=== PATIENT | male | born 1935 | race Caucasian/White ===

== ENCOUNTER → 2017-02-09 | Outpatient (CLI) | payer BC ==
[~2017-02-09] MED LIST: ADVIN10/60 INH; AMLO-110 PO; AMOX500C3 PO; ASPI325T45 PO; DUTA0.5C PO; FINA5TAB PO; INSUINJ SC; LISI-725 PO; MAGN400T6 PO; METF1000 PO; METO25TA56 PO; OMEP20TA PO; SILO8CAP PO; SIMV20TA5 PO
[2017-02-09 09:45] LABS: BASO % 0.2 %; BASO ABS # 0.01 K/uL (0-0.2); COMPLETE YES; EOS % 5.5 %; IG% 0.2 %; LYMPH % 31.8 %; MEAN CELL VOLUME 97.9 fL (80-100); MEAN CORPUSCULAR HEMOGLOBIN 32.9 pg (25-34); MEAN CORPUSCULAR HGB CONC 33.6 g/dl (32-36); MEAN PLATELET VOLUME 10.8 fL (7.4-10.4); MONO % 8.5 %; NEUT % 53.8 %; PLATELET COUNT 160 K/uL (130-400); RED BLOOD COUNT 4.29 M/uL (4.7-6.1); WHITE BLOOD COUNT 4.72 K/uL (4.8-10.8)
[2017-02-09 10:06] LABS: ESTIMATED AVERAGE GLUCOSE 148 mg/dl; HA1C FLAG Normal (Normal)
[2017-02-09 10:20] LABS: CHOLESTEROL/HDL RATIO 3.1; MAGNESIUM 1.9 mg/dl (1.8-2.4)
[2017-02-09 10:27] LABS: RATIO 6.3 mcg/mg (0-30.0)
== END | disposition home or self-care (01) ==
LOC: C.LAB 07:17
PROVIDERS: ATTEND Internal Medicine
DX: I25.10 Atherosclerotic heart disease of native coronary artery without angina pectoris (principal); D64.9 Anemia, unspecified; E78.00 Pure hypercholesterolemia, unspecified; E11.9 Type 2 diabetes mellitus without complications; E83.42 Hypomagnesemia

== ENCOUNTER → 2017-08-16 | Outpatient (CLI) | payer BC ==
[2017-08-16 10:12] LABS: HEMATOCRIT 42.7 % (42-52); MEAN CELL VOLUME 98.2 fL (80-100); MEAN CORPUSCULAR HEMOGLOBIN 32.4 pg (25-34); MEAN PLATELET VOLUME 10.9 fL (7.4-10.4); PLATELET COUNT 139 K/uL (130-400); RED BLOOD COUNT 4.35 M/uL (4.7-6.1); WHITE BLOOD COUNT 5.52 K/uL (4.8-10.8)
[2017-08-16 10:19] LABS: ESTIMATED AVERAGE GLUCOSE 140 mg/dl; HA1C FLAG Normal (Normal)
[2017-08-16 10:30] LABS: ALT/SGPT 37 U/L (12-78); AST/SGOT 20 U/L (15-37); BLOOD UREA NITROGEN 19 mg/dl (7-18); BUN/CREATININE RATIO 17.7 (10-20); CARBON DIOXIDE 27 mmol/L (21-32); CHLORIDE 107 mmol/L (98-107); CREATININE 1.05 mg/dl (0.60-1.40); GLUCOSE 128 mg/dl (70-99); POTASSIUM 4.5 mmol/L (3.5-5.1); SODIUM 142 mmol/L (136-145)
[2017-08-16 10:33] LABS: CHOLESTEROL 114 mg/dl (0-200); CHOLESTEROL/HDL RATIO 2.4; HDL CHOLESTEROL 47 mg/dl; LDL CHOLESTEROL CALCULATED 51 mg/dl; TRIGLYCERIDES 82 mg/dl (0-150); VERY LOW DENSITY LIPOPROT CALC 16 mg/dl
== END | disposition home or self-care (01) ==
LOC: C.LAB 08:37
PROVIDERS: ATTEND Internal Medicine Cardiovascular Disease
DX: I10 Essential (primary) hypertension (principal); E11.9 Type 2 diabetes mellitus without complications; D64.9 Anemia, unspecified; I25.10 Atherosclerotic heart disease of native coronary artery without angina pectoris

== ENCOUNTER → 2018-02-06 | Outpatient (CLI) | payer BC ==
[~2018-02-06] MED LIST changes: +ASPECOTC PO; -ASPI325T45 PO
[2018-02-06 10:55] LABS: HEMATOCRIT 41.9 % (42-52); HEMOGLOBIN 14.1 g/dL (14.0-18.0); MEAN CELL VOLUME 97.2 fL (80-100); MEAN CORPUSCULAR HEMOGLOBIN 32.7 pg (25-34); MEAN CORPUSCULAR HGB CONC 33.7 g/dl (32-36); MEAN PLATELET VOLUME 11.1 fL (7.4-10.4); PLATELET COUNT 153 K/uL (130-400); RED CELL DISTRIBUTION WIDTH CV 12.9 % (11.5-14.5); RED CELL DISTRIBUTION WIDTH SD 45.6 fL (36.4-46.3)
[2018-02-06 11:42] LABS: BLOOD UREA NITROGEN 18 mg/dl (7-18); GLUCOSE 147 mg/dl (70-99)
[2018-02-06 11:43] LABS: ALT/SGPT 37 U/L (12-78); AST/SGOT 23 U/L (15-37); CALCIUM 8.8 mg/dl (8.5-10.1); CARBON DIOXIDE 27 mmol/L (21-32); CHOLESTEROL 114 mg/dl (0-200); CREATININE 1.18 mg/dl (0.60-1.40); POTASSIUM 4.4 mmol/L (3.5-5.1); SODIUM 141 mmol/L (136-145)
[2018-02-06 11:46] LABS: LDL CHOLESTEROL CALCULATED 46 mg/dl
== END | disposition home or self-care (01) ==
LOC: C.LABBC 08:08
PROVIDERS: ATTEND Internal Medicine
DX: E78.00 Pure hypercholesterolemia, unspecified (principal); N40.1 Benign prostatic hyperplasia with lower urinary tract symptoms; I10 Essential (primary) hypertension; D64.9 Anemia, unspecified

== ENCOUNTER 2018-05-01 08:09 | Inpatient (IN) | payer BC, OTHER ==
[~2018-05-01] VITALS: Ht 172.7 cm; Wt 98.4 kg
[~2018-05-01 08:09] MED LIST changes: -AMLO-110 PO; +AMLO5TAB3 PO
[2018-05-01] MEDS ORDERED: SODIUM CHLORIDE 0.9% 1000ML 1,000 ML IV SCH (08:12)
--- NOTE | 2018-05-01 08:29 | EMERGENCY ROOM VISIT NOTE ---
History Report prepared by Braydon: Nannette Christian Under the Supervision of: Dr. John Ferguson M.D. First contact with patient: 08:20 Chief Complaint: STROKE SYMPTOMS Stated Complaint: RT ARM & LEG NOT WORKING CORRECTLY, HEAD NOT RIGHT Nursing Triage Summary: pt reports last night 2200 sx started with right arm and leg not working properly. claim professional equal and smile equal . no speech problems. right leg difficulty lift slow getting words out and finding corect words. pt reports pressure in head History of Present Illness The patient is a 83 year old male who presents to the Emergency Room with complaints of worsening right-sided weakness that began at 2200 last night, about 11 hours ago. The patient's states that they were watching television and the patient went to stand up, but was unable to put weight on his right leg. The patient states that he was also unable to move his right leg. 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 The patients also reports that his speech was normal. The patient states that he does not usually use a cane but had to use one to help him walk last night because of the weakness in his right leg. The patient denies any stomach pain, but reports a slight headache that feels like "pressure". The patient states that he had bypass 6 years ago in [place]. He also states that he follows with Dr. Vigil and that Dr. Hatch is his sr vice president. Source of History: patient, spouse/significant other Onset: 11 hours ago Position: arm (right), leg (right) Quality: pressure (headache ), other (weakness ) Timing: worsening Associated Symptoms: + headache, No abdominal pain Review of Systems See HPI for pertinent positives & negatives. A total of 10 systems reviewed and were otherwise negative. Past Medical & Surgical Medical Problems: (1) BPH (benign prostatic hyperplasia) (2) CAD (coronary artery disease) (3) COPD (chronic obstructive pulmonary disease) (4) CVA (cerebral vascular accident) (5) Diabetes (6) DVT prophylaxis Social History Smoking Status: Never Smoker Current/Historical Medications Scheduled Amlodipine (Norvasc), 5 MG PO QAM Aspirin (Aspirin), 325 MG PO QPM Finasteride (Proscar), 5 MG PO QAM Fluticasone Prop/Salmeterol (Advair Diskus 100/50 60 Dose), 1 PUFF INH BID Insulin Human NPH (Humulin N), 30 UNITS SC HS Lisinopril (Zestril), 20 MG PO QAM Magnesium Oxide (Mag-Ox), 400 MG PO TID Metformin Hcl (Glucophage), 1,000 MG PO BID Metoprolol Tartrate (Lopressor) (Lopressor), 25 MG PO BID Multivitamin (Multivitamin), 1 TAB PO DAILY Omeprazole (Omeprazole), 1 TAB PO QAM Silodosin (Rapaflo), 1 CAP PO QAM Simvastatin (Zocor), 20 MG PO QPM Scheduled PRN Amoxicillin (Amoxil), 2,000 MG PO DAILY PRN for prior to dental appointment Allergies Coded Allergies: Oxycodone (Verified Adverse Reaction, Unknown, HALLUCINATIONS, 05/01/18) Physical Exam Vital Signs Date Time Temp Pulse Resp B/P (MAP) Pulse Ox O2 Delivery O2 Flow Rate FiO2 05/01/18 09:19 57 18 158/76 97 Room Air 05/01/18 08:32 62 12 177/83 97 Room Air 05/01/18 08:28 62 05/01/18 08:26 96 Room Air 05/01/18 08:16 36.6 64 18 165/70 97 Room Air Physical Exam GENERAL: Awake, alert, well-appearing, in no acute distress HENT: Normocephalic, atraumatic. Oropharynx unremarkable. EYES: Normal conjunctiva. Sclera non-icteric. NECK: Supple. No nuchal rigidity. FROM. No JVD. RESPIRATORY: Clear to auscultation. CARDIAC: Regular rate, normal rhythm. Extremities warm and well perfused. Pulses equal. ABDOMEN: Soft, non-distended. No tenderness to palpation. No rebound or guarding. No masses. RECTAL: Deferred. MUSCULOSKELETAL: Chest examination reveals no tenderness. The back is symmetrical on inspection without obvious abnormality. There is no CVA tenderness to palpation. No joint edema. LOWER EXTREMITIES: Calves are equal size bilaterally and non-tender. No edema. No discoloration. NEURO: Normal sensorium. No sensory deficits noted. 3/5 strength to the right leg. 4/5 strength to the right arm. SKIN: No rash or jaundice noted. Medical Decision & Procedures ER Provider Diagnostic Interpretation: Radiology results as stated below per my review and radiologist interpretation: CT SCAN OF THE BRAIN WITHOUT IV CONTRAST CLINICAL HISTORY: Right arm and leg numbness. COMPARISON STUDY: CT of the brain dated 06/10/2013. TECHNIQUE: Unenhanced axial CT scan of the brain is performed from the vertex to the skull base. A dose lowering technique was utilized adhering to the principles of ALARA. FINDINGS: Brain parenchyma: There are age-related involutional changes noting moderate patchy subcortical and periventricular microangiopathic change. There is no hemorrhage, mass effect, or evidence of acute territorial ischemia by CT criteria. Souza-white matter is preserved. No extra-axial fluid collection is seen. Ventricles, sulci, cisterns: Prominent secondary to involutional change. Intracranial vasculature: There is atherosclerotic calcification of the cavernous carotid and vertebral arteries. Calvarium: Unremarkable. Sinuses and mastoids: The visualized paranasal sinuses are clear. The mastoid air cells are well pneumatized. Orbits: The bony orbits are grossly intact. There are bilateral ocular lens implants. IMPRESSION: There is no hemorrhage, mass effect, or evidence of acute territorial ischemia by CT criteria. Electronically signed by: Jonathan Gross M.D. 05/01/2018 9:30 AM Dictated Date/Time: 05/01/2018 9:26 AM CHEST ONE VIEW PORTABLE CLINICAL HISTORY: Stroke. COMPARISON STUDY: Chest radiograph June 13, 2013. FINDINGS: Patient is rotated. Median sternotomy wires are noted. Cardiac size is accentuated on this rotated exam. There is no pneumothorax or pleural effusion. There is no evidence for pulmonary edema. There is pulmonary vascular congestion. No lobar consolidation is noted. IMPRESSION: 1. Pulmonary vascular congestion without overt edema. 2. Rotated study. Electronically signed by: Prasad Lo M.D. 05/01/2018 9:01 AM Dictated Date/Time: 05/01/2018 9:[address] ANGIOGRAPHY OF THE NECK WITH CONTRAST CLINICAL HISTORY: Right arm and leg numbness. Stroke symptoms. COMPARISON STUDY: Carotid ultrasound June 23, 2014. Technique: CT angiography of the carotid and vertebral arteries was obtained using [employer] 320 IV and 3D reconstruction on an independent workstation. NASCET criteria was utilized. A dose lowering technique was utilized adhering to the principles of ALARA Findings: There is moderate plaque within the proximal bilateral internal carotid arteries. The caliber of the proximal right internal carotid artery is 2 mm. The caliber of the distal right internal carotid artery is 4.1 cm. The caliber of the proximal left internal carotid artery at site of stenosis is 1.8 mm. The caliber distally is 4.1 mm. There is no dissection. There is moderate stenosis at the origin of the right vertebral artery due to atherosclerotic plaque. The CTA of the head will be reported separately. Lung apices are clear. There are median sternotomy wires. There is no cervical lymphadenopathy. No mucosal lesion is identified although these may be occult by CT. IMPRESSION: 1. 50% stenosis of the proximal right internal carotid artery and 40% of the proximal left internal carotid artery due to extensive calcified atherosclerotic plaque. 2. Moderate stenosis at the origin of the right vertebral artery. 3. No dissection within the major vessels of the neck. Electronically signed by: Prasad Lo M.D. 05/01/2018 9:46 AM Dictated Date/Time: 05/01/2018 9:35 AM CTA ANGIOGRAPHY OF THE HEAD CLINICAL HISTORY: Right arm and leg numbness. Stroke symptoms. COMPARISON STUDY: Head CT June 10, 2013. TECHNIQUE: Helical axial images of the head were obtained following uneventful intravenous administration of 93 cc of Optiray 320. A dose lowering technique was utilized adhering to the principles of ALARA. CT DOSE: 1204.32 mGy.cm FINDINGS: The bilateral M1, M2, A1 and A2 segments are patent. There is no abrupt vessel cut off, dissection or intracranial aneurysm. There is moderate calcified atherosclerotic plaque within the intracranial vessels. This results in moderate multifocal stenosis, including moderate stenosis of the intracranial portions of the bilateral vertebral arteries and the left cavernous carotid. There is no severe stenosis within the major intracranial vessels. The CT of the head will be reported separately. Ventricular system is normal for age. Basilar cisterns are patent. There are no extra-axial collections. IMPRESSION: 1. No abrupt vessel cut off or intracranial aneurysm. 2. Moderate calcified atherosclerotic plaque which results in moderate multifocal stenoses, as detailed above. Electronically signed by: Prasad Lo M.D. 05/01/2018 9:35 AM Dictated Date/Time: 05/01/2018 9:30 AM Laboratory Results 05/01/18 08:30 Red Blood Count 4.31, Mean Corpuscular Volume 95.6, Mean Corpuscular Hemoglobin 32.9, Mean Corpuscular Hemoglobin Concent 34.5, Mean Platelet Volume 10.8, Neutrophils (%) (Auto) 59.9, Lymphocytes (%) (Auto) 24.0, Monocytes (%) (Auto) 9.9, Eosinophils (%) (Auto) 5.6, Basophils (%) (Auto) 0.2, Neutrophils # (Auto) 3.09, Lymphocytes # (Auto) 1.24, Monocytes # (Auto) 0.51, Eosinophils # (Auto) 0.29, Basophils # (Auto) 0.01 05/01/18 08:30 Test 05/01/18 08:30 05/01/18 09:30 White Blood Count 5.16 K/uL (4.8-10.8) Red Blood Count 4.31 M/uL (4.7-6.1) Hemoglobin 14.2 g/dL (14.0-18.0) Hematocrit 41.2 % (42-52) Mean Corpuscular Volume 95.6 fL (80-100) Mean Corpuscular Hemoglobin 32.9 pg (25-34) Mean Corpuscular Hemoglobin Concent 34.5 g/dl (32-36) Platelet Count 142 K/uL (130-400) Mean Platelet Volume 10.8 fL (7.4-10.4) Neutrophils (%) (Auto) 59.9 % Lymphocytes (%) (Auto) 24.0 % Monocytes (%) (Auto) 9.9 % Eosinophils (%) (Auto) 5.6 % Basophils (%) (Auto) 0.2 % Neutrophils # (Auto) 3.09 K/uL (1.4-6.5) Lymphocytes # (Auto) 1.24 K/uL (1.2-3.4) Monocytes # (Auto) 0.51 K/uL (0.11-0.59) Eosinophils # (Auto) 0.29 K/uL (0-0.5) Basophils # (Auto) 0.01 K/uL (0-0.2) RDW Standard Deviation 44.0 fL (36.4-46.3) RDW Coefficient of Variation 12.8 % (11.5-14.5) Immature Granulocyte % (Auto) 0.4 % Immature Granulocyte # (Auto) 0.02 K/uL (0.00-0.02) Prothrombin Time 10.7 SECONDS (9.0-12.0) Prothromb Time International Ratio 1.0 (0.9-1.1) Activated Partial Thromboplast Time 26.6 SECONDS (21.0-31.0) Partial Thromboplastin Ratio 1.0 Anion Gap 10.0 mmol/L (3-11) Est Creatinine Clear Calc Drug Dose 63.7 ml/min Estimated GFR () 77.7 Estimated GFR (Non- 67.0 BUN/Creatinine Ratio 20.9 (10-20) Calcium Level 8.7 mg/dl (8.5-10.1) Magnesium Level 1.6 mg/dl (1.8-2.4) Total Creatine Kinase 135 U/L (39-308) Creatine Kinase MB 3.7 ng/ml (0.5-3.6) Creatine Kinase MB Ratio 2.7 (0-3.0) Troponin I < 0.015 ng/ml (0-0.045) Urine Color YELLOW Urine Appearance CLEAR (CLEAR) Urine pH 6.0 (4.5-7.5) Urine Specific [place] 1.031 (1.000-1.030) Urine Protein NEG (NEG) Urine Glucose (UA) NEG (NEG) Urine Ketones NEG (NEG) Urine Occult Blood NEG (NEG) Urine Nitrite NEG (NEG) Urine Bilirubin NEG (NEG) Urine Urobilinogen NEG (NEG) Urine Leukocyte Esterase NEG (NEG) Labs reviewed by ED physician. Medications Administered Medications (Trade) Dose Ordered Sig/Chris Route Start Time Stop Time Status Last Admin Dose Admin Sodium Chloride 1,000 ml @ 50 mls/hr Q20H IV 05/01/18 08:12 05/01/18 11:32 DC 05/01/18 08:31 50 MLS/HR ED Course 0821: Past medical records reviewed. The patient was evaluated in room A1. A complete history and physical examination was performed. 1000: I discussed the patient's case with Dr. Ortiz, he has agreed to evaluate the patient for further management and care. Medical Decision Prior records/ancillary studies reviewed and summarized above. Nursing notes reviewed. Additional history obtained from . The patient's history was concerning for right sided weakness. Differential diagnosis: Etiologies such as metabolic, infection, hypo/hyperglycemia, electrolyte abnormalities, cardiac sources, intracerebral event, toxicologic, neurologic, as well as others were entertained. This is an 83-year-old male who presents emergency department after right-sided weakness that developed last evening. Based on the patient's presentation as well as physical examination I am concerned that he has suffered a CVA however he is well outside the window for TPA. An IV was established, the patient was sent for CT of the head Keyla of the neck. This did not show any acute stroke however the patient continues to have right-sided weakness. I therefore did discuss the case with the hospitalist service. He was given 324 mg of aspirin. Medication Reconcilliation Current Medication List: was personally reviewed by me Blood Pressure Screening Patient's blood pressure: Elevated blood pressure Will be further monitored by the hospitalist. Consults Time Called: [phone] Consulting Physician: Dr. Ortiz-[facility] Hospitalist Returned Call: [phone]: I discussed the patient's case with Dr. Ortiz, he has agreed to evaluate the patient for further management and care. Impression Primary Impression: Right sided weakness Scribe Attestation The scribe's documentation has been prepared under my direction and personally reviewed by me in its entirety. I confirm that the note above accurately reflects all work, treatment, procedures, and medical decision making performed by me. Departure Information Dispostion Being Evaluated By Hospitalist Referrals ,Maihn Helton M.D. (PCP) Patient Instructions My [facility] Stroke History Time Last Known Well last night Stroke t-PA Criteria Reviewed Does NOT meet criteria for t-PA Reason t-PA Not Given Treatment not indicated
[2018-05-01] MEDS ORDERED: OPTIRAY 320 IV PRN (08:30)
[2018-05-01 08:42] LABS: BASO % 0.2 %; BASO ABS # 0.01 K/uL (0-0.2); EOS % 5.6 %; EOS ABS # 0.29 K/uL (0-0.5); HEMATOCRIT 41.2 % (42-52); HEMOGLOBIN 14.2 g/dL (14.0-18.0); IG# 0.02 K/uL (0.00-0.02); LYMPH ABS # 1.24 K/uL (1.2-3.4); MEAN CELL VOLUME 95.6 fL (80-100); MEAN CORPUSCULAR HEMOGLOBIN 32.9 pg (25-34); MEAN CORPUSCULAR HGB CONC 34.5 g/dl (32-36); MEAN PLATELET VOLUME 10.8 fL (7.4-10.4); MONO % 9.9 %; MONO ABS # 0.51 K/uL (0.11-0.59); NEUT % 59.9 %; NEUT ABS # 3.09 K/uL (1.4-6.5); PLATELET COUNT 142 K/uL (130-400); RED CELL DISTRIBUTION WIDTH CV 12.8 % (11.5-14.5); WHITE BLOOD COUNT 5.16 K/uL (4.8-10.8)
[2018-05-01 08:50] LABS: PTT PATIENT 26.6 SECONDS (21.0-31.0)
--- NOTE | 2018-05-01 09:03 | DIAGNOSTIC IMAGING REPORT ---
CHEST ONE VIEW PORTABLE CLINICAL HISTORY: Stroke. COMPARISON STUDY: Chest radiograph June 13, 2013. FINDINGS: Patient is rotated. Median sternotomy wires are noted. Cardiac size is accentuated on this rotated exam. There is no pneumothorax or pleural effusion. There is no evidence for pulmonary edema. There is pulmonary vascular congestion. No lobar consolidation is noted. IMPRESSION: 1. Pulmonary vascular congestion without overt edema. 2. Rotated study. Electronically signed by: Prasad Lo M.D. 05/01/2018 9:01 AM Dictated Date/Time: 05/01/2018 9:00 AM
[2018-05-01 09:04] LABS: BLOOD UREA NITROGEN 22 mg/dl (7-18); CALCIUM 8.7 mg/dl (8.5-10.1); CARBON DIOXIDE 23 mmol/L (21-32); CKMB 3.7 ng/ml (0.5-3.6); CREATININE 1.04 mg/dl (0.60-1.40); GLUCOSE 190 mg/dl (70-99); POTASSIUM 4.1 mmol/L (3.5-5.1); SODIUM 136 mmol/L (136-145)
--- NOTE | 2018-05-01 09:32 | DIAGNOSTIC IMAGING REPORT ---
CT SCAN OF THE BRAIN WITHOUT IV CONTRAST CLINICAL HISTORY: Right arm and leg numbness. COMPARISON STUDY: CT of the brain dated 06/10/2013. TECHNIQUE: Unenhanced axial CT scan of the brain is performed from the vertex to the skull base. A dose lowering technique was utilized adhering to the principles of ALARA. FINDINGS: Brain parenchyma: There are age-related involutional changes noting moderate patchy subcortical and periventricular microangiopathic change. There is no hemorrhage, mass effect, or evidence of acute territorial ischemia by CT criteria. Souza-white matter is preserved. No extra-axial fluid collection is seen. Ventricles, sulci, cisterns: Prominent secondary to involutional change. Intracranial vasculature: There is atherosclerotic calcification of the cavernous carotid and vertebral arteries. Calvarium: Unremarkable. Sinuses and mastoids: The visualized paranasal sinuses are clear. The mastoid air cells are well pneumatized. Orbits: The bony orbits are grossly intact. There are bilateral ocular lens implants. IMPRESSION: There is no hemorrhage, mass effect, or evidence of acute territorial ischemia by CT criteria. Electronically signed by: Jonathan Grsos M.D. 05/01/2018 9:30 AM Dictated Date/Time: 05/01/2018 9:26 AM
--- NOTE | 2018-05-01 09:37 | DIAGNOSTIC IMAGING REPORT ---
CTA ANGIOGRAPHY OF THE HEAD CLINICAL HISTORY: Right arm and leg numbness. Stroke symptoms. COMPARISON STUDY: Head CT June 10, 2013. TECHNIQUE: Helical axial images of the head were obtained following uneventful intravenous administration of 93 cc of Optiray 320. A dose lowering technique was utilized adhering to the principles of ALARA. CT DOSE: 1204.32 mGy.cm FINDINGS: The bilateral M1, M2, A1 and A2 segments are patent. There is no abrupt vessel cut off, dissection or intracranial aneurysm. There is moderate calcified atherosclerotic plaque within the intracranial vessels. This results in moderate multifocal stenosis, including moderate stenosis of the intracranial portions of the bilateral vertebral arteries and the left cavernous carotid. There is no severe stenosis within the major intracranial vessels. The CT of the head will be reported separately. Ventricular system is normal for age. Basilar cisterns are patent. There are no extra-axial collections. IMPRESSION: 1. No abrupt vessel cut off or intracranial aneurysm. 2. Moderate calcified atherosclerotic plaque which results in moderate multifocal stenoses, as detailed above. Electronically signed by: Prasad Lo M.D. 05/01/2018 9:35 AM Dictated Date/Time: 05/01/2018 9:30 AM
--- NOTE | 2018-05-01 09:47 | DIAGNOSTIC IMAGING REPORT ---
CT ANGIOGRAPHY OF THE NECK WITH CONTRAST CLINICAL HISTORY: Right arm and leg numbness. Stroke symptoms. COMPARISON STUDY: Carotid ultrasound June 23, 2014. Technique: CT angiography of the carotid and vertebral arteries was obtained using [employer] 320 IV and 3D reconstruction on an independent workstation. NASCET criteria was utilized. A dose lowering technique was utilized adhering to the principles of ALARA Findings: There is moderate plaque within the proximal bilateral internal carotid arteries. The caliber of the proximal right internal carotid artery is 2 mm. The caliber of the distal right internal carotid artery is 4.1 cm. The caliber of the proximal left internal carotid artery at site of stenosis is 1.8 mm. The caliber distally is 4.1 mm. There is no dissection. There is moderate stenosis at the origin of the right vertebral artery due to atherosclerotic plaque. The CTA of the head will be reported separately. Lung apices are clear. There are median sternotomy wires. There is no cervical lymphadenopathy. No mucosal lesion is identified although these may be occult by CT. IMPRESSION: 1. 50% stenosis of the proximal right internal carotid artery and 40% of the proximal left internal carotid artery due to extensive calcified atherosclerotic plaque. 2. Moderate stenosis at the origin of the right vertebral artery. 3. No dissection within the major vessels of the neck. Electronically signed by: Prasad Lo M.D. 05/01/2018 9:46 AM Dictated Date/Time: 05/01/2018 9:35 AM
[2018-05-01] MEDS ORDERED: HydrALAZINE HCL 20 MG/ML VIAL IV PRN (10:00)
[2018-05-01] MEDS ORDERED: ASPIRIN 81 MG CHEW PO STA (10:02)
[2018-05-01] MEDS ORDERED: INSHNI SC (10:13)
[2018-05-01] MEDS ORDERED: MULT-506 PO (10:34)
[2018-05-01] MEDS ORDERED: CLOPIDOGREL BISULFATE 75 MG TAB ONE (10:49)
[2018-05-01 11:13] VITALS: BMI 33.8
[2018-05-01 11:14] VITALS: BP 175/75; PULSE 54; TEMP 36.4; O2SAT 94; BMI 33.8
[2018-05-01] MEDS ORDERED: CLOPIDOGREL BISULFATE 75 MG TAB PO ONE (12:00)
[2018-05-01] MEDS ORDERED: GLUCOSE 10 TABS/TUBE PO PRN (12:00)
[2018-05-01] MEDS ORDERED: DEXTROSE 50% 50 ML SYR IV PRN (12:00)
[2018-05-01] MEDS ORDERED: CARBOHYDRATES FOR HYPOGLYCEMIA PO PRN (12:00)
[2018-05-01] MEDS ORDERED: GLUCAGON FOR INJ 1 MG VIAL IM PRN (12:00)
[2018-05-01] MEDS ORDERED: GLUCOSE 40% GEL 15 GM TUBE PO PRN (12:00)
[2018-05-01] MEDS: INSULIN ASPART 100 UNITS/ML 3 ML PEN SC SCH ×3 (12:22→20:56)
--- NOTE | 2018-05-01 13:15 | History and Physical ---
History & Physical Date & Time of Service: May 01, 2018 at 12:56 Chief Complaint: CVA Primary Care Physician: Mahin Vigil M.D. History of Present Illness 83-year-old male who developed right arm and leg weakness evening prior to presentation. The patient however had no slurred speech and facial droop and resistant advised to come to ER by his . This morning he maintained the same symptoms from having more problems with right leg weakness. Patient was brought into the ER by private vehicle he was outside of the time window for thrombolytic therapy. He lacked any other symptoms such as facial droop or speech or swallowing problems and no coughing with drinking in the ER he is admitted to our facility for concern for stroke although none was seen acutely on a CT scan Past Medical/Surgical History Medical Problems: (1) CVA (cerebral vascular accident) (2) Localized, primary osteoarthritis of the lower leg (3) Right shoulder injury Family History diabetes and htn Social History Smoking Status: Former Smoker Smokeless Tobacco Use: No Alcohol Use: none Immunizations History of Influenza Vaccine: Yes Influenza Vaccine Date: Jul 18, 2013 History of Tetanus Vaccine?: Yes History of Pneumococcal: Yes History of Hepatitis B Vaccine: Yes Allergies Coded Allergies: Oxycodone (Verified Adverse Reaction, Unknown, HALLUCINATIONS, 05/01/18) Home Medications Scheduled Amlodipine (Norvasc), 5 MG PO QAM Aspirin (Aspirin), 325 MG PO QPM Finasteride (Proscar), 5 MG PO QAM Fluticasone Prop/Salmeterol (Advair Diskus 100/50 60 Dose), 1 PUFF INH BID Insulin Human NPH (Humulin N), 30 UNITS SC HS Lisinopril (Zestril), 20 MG PO QAM Magnesium Oxide (Mag-Ox), 400 MG PO TID Metformin Hcl (Glucophage), 1,000 MG PO BID Metoprolol Tartrate (Lopressor) (Lopressor), 25 MG PO BID Multivitamin (Multivitamin), 1 TAB PO DAILY Omeprazole (Omeprazole), 1 TAB PO QAM Silodosin (Rapaflo), 1 CAP PO QAM Simvastatin (Zocor), 20 MG PO QPM Scheduled PRN Amoxicillin (Amoxil), 2,000 MG PO DAILY PRN for prior to dental appointment Review of Systems ROS: well nourished well developed. No double vision blurry vision No problems with speech or swallowing No palpitations, chest pain or pressure No Wheezing or breathing issues No abdominal pain nausea vomiting diarrhea changes in appetite or weight No burning urine urine frequency or changes in color No focal joint pain or muscle pain No skin rashes or oral lesions No unusual bruising or bleeding No focused back pain or numbness but loss of strength in right arm and leg No changes in memory or confusion Physical Exam Vital Signs Date Time Temp Pulse Resp B/P (MAP) Pulse Ox O2 Delivery O2 Flow Rate FiO2 05/01/18 11:14 36.4 54 16 175/75 94 Room Air 05/01/18 11:03 73 20 165/85 97 Room Air 05/01/18 09:19 57 18 158/76 97 Room Air 05/01/18 08:32 62 12 177/83 97 Room Air 05/01/18 08:28 62 05/01/18 08:26 96 Room Air 05/01/18 08:16 36.6 64 18 165/70 97 Room Air General Appearance: WD/WN, + mild distress Head: normocephalic, atraumatic Eyes: normal inspection, PERRL, EOMI, sclerae normal ENT: hearing grossly normal, pharynx normal Neck: supple, trachea midline Respiratory/Chest: chest non-tender, lungs clear, normal breath sounds Cardiovascular: regular rate, rhythm, no murmur Abdomen/GI: normal bowel sounds, non tender, soft Back: no CVA tenderness, no muscle spasm Extremities/Musculoskelatal: + pertinent finding (right sided weakness, cannot lift leg against gravity but right arm is 4/5 medical insurance verifier only slighltly weak, dorsi and plantar flexion not significantly weak) Neurologic/Psych: alert, oriented x 3, + motor weakness Skin: normal color, warm/dry Diagnostics Laboratory Results Results Past 24 Hours Test 05/01/18 08:28 05/01/18 08:30 05/01/18 09:30 05/01/18 11:44 Range/Units Bedside Glucose 179 105 70-99 mg/dl White Blood Count 5.16 4.8-10.8 K/uL Red Blood Count 4.31 4.7-6.1 M/uL Hemoglobin 14.2 14.0-18.0 g/dL Hematocrit 41.2 42-52 % Mean Corpuscular Volume 95.6 80-100 fL Mean Corpuscular Hemoglobin 32.9 25-34 pg Mean Corpuscular Hemoglobin Concent 34.5 32-36 g/dl Platelet Count 142 130-400 K/uL Mean Platelet Volume 10.8 7.4-10.4 fL Neutrophils (%) (Auto) 59.9 % Lymphocytes (%) (Auto) 24.0 % Monocytes (%) (Auto) 9.9 % Eosinophils (%) (Auto) 5.6 % Basophils (%) (Auto) 0.2 % Neutrophils # (Auto) 3.09 1.4-6.5 K/uL Lymphocytes # (Auto) 1.24 1.2-3.4 K/uL Monocytes # (Auto) 0.51 0.11-0.59 K/uL Eosinophils # (Auto) 0.29 0-0.5 K/uL Basophils # (Auto) 0.01 0-0.2 K/uL RDW Standard Deviation 44.0 36.4-46.3 fL RDW Coefficient of Variation 12.8 11.5-14.5 % Immature Granulocyte % (Auto) 0.4 % Immature Granulocyte # (Auto) 0.02 0.00-0.02 K/uL Prothrombin Time 10.7 9.0-12.0 SECONDS Prothromb Time International Ratio 1.0 0.9-1.1 Activated Partial Thromboplast Time 26.6 21.0-31.0 SECONDS Partial Thromboplastin Ratio 1.0 Sodium Level 136 136-145 mmol/L Potassium Level 4.1 3.5-5.1 mmol/L Chloride Level 103 98-107 mmol/L Carbon Dioxide Level 23 21-32 mmol/L Anion Gap 10.0 3-11 mmol/L Blood Urea Nitrogen 22 7-18 mg/dl Creatinine 1.04 0.60-1.40 mg/dl Est Creatinine Clear Calc Drug Dose 63.7 ml/min Estimated GFR () 77.7 Estimated GFR (Non- 67.0 BUN/Creatinine Ratio 20.9 10-20 Random Glucose 190 70-99 mg/dl Calcium Level 8.7 8.5-10.1 mg/dl Magnesium Level 1.6 1.8-2.4 mg/dl Total Creatine Kinase 135 39-308 U/L Creatine Kinase MB 3.7 0.5-3.6 ng/ml Creatine Kinase MB Ratio 2.7 0-3.0 Troponin I < 0.015 0-0.045 ng/ml Urine Color YELLOW Urine Appearance CLEAR CLEAR Urine pH 6.0 4.5-7.5 Urine Specific [place] 1.031 1.000-1.030 Urine Protein NEG NEG Urine Glucose (UA) NEG NEG Urine Ketones NEG NEG Urine Occult Blood NEG NEG Urine Nitrite NEG NEG Urine Bilirubin NEG NEG Urine Urobilinogen NEG NEG Urine Leukocyte Esterase NEG NEG Diagnostic Radiology CT head is negative for acute events, CTA shows concern for vertebral stenosis CXR normal Impression Assessment and Plan (1) CVA (cerebral vascular accident) Assessment & Plan: 83-year-old male here with apparent clinical stroke symptoms with negative CT scan on presentation patient was out of the window for thrombolytic administration. CT angiogram suggests possible vertebral stenosis. Patient is to thrombolysis for transition to Plavix therapy atorvastatin was started pending brain MRI permissive hypertension will be achieved by reducing his antihypertensive medications he will receive PT OT evaluation in the ER clinical screening for speech seemed to be intact he had no problems with swallowing or speaking neurology consult will be had (2) Diabetes Assessment & Plan: Patient typically takes NPH 30 units at night and Glucophage. These will both be held. The patient be a basal bolus insulin with instituting Lantus at 8 units twice daily and sliding scale (3) BPH (benign prostatic hyperplasia) Assessment & Plan: Patient has not been bothered by clinical symptoms he will continue on Proscar and pharmacy substituted for his Rapaflo (4) COPD (chronic obstructive pulmonary disease) Assessment & Plan: This is been clinically stable will maintain Advair not instituting additional agents unless needed (5) CAD (coronary artery disease) Assessment & Plan: Coronary disease is been stable with no chest pain or exertional angina will maintain his antianginals of metoprolol at 25 twice daily however we will reduce his Zestril dose to 5 hold his Norvasc his statin will be transitioned from Zocor to plaque stabilizing atorvastatin (6) DVT prophylaxis Assessment & Plan: DVT prevention will be heparin therapy Advanced Directives Existing Living Will: Yes Existing Power of Seo Team Lead: Yes Resuscitation Status VTE Prophylaxis Will order VTE Prophylaxis: Yes
--- NOTE | 2018-05-01 13:33 | DIAGNOSTIC IMAGING REPORT ---
MRI OF THE BRAIN WITHOUT CONTRAST CLINICAL HISTORY: Evaluate posterior stroke. Right arm and leg weakness. COMPARISON STUDY: Head CT and CTA of the head performed earlier today. TECHNIQUE: Utilizing a 1.5 Roselia magnet and dedicated coil, multiplanar, multiecho imaging of the brain was performed without IV contrast. FINDINGS: Note is made of a 1 cm focus of restricted diffusion within the periventricular left temporal lobe/summers radiata, just superior to the left thalamus. There is no hemorrhage or mass effect. No additional foci of acute infarct are noted. Mild ventricular dilatation is due to atrophy. Basilar cisterns are patent. There are no extra axial collections. White matter T2 hyperintense foci suggest moderate small vessel disease. There are no calvarial lesions. Orbits are unremarkable. IMPRESSION: 1 cm acute infarct within the periventricular left temporal lobe/summers radiata. No mass effect. No hemorrhage. Electronically signed by: Prasad Lo M.D. 05/01/2018 1:32 PM Dictated Date/Time: 05/01/2018 1:09 PM
[2018-05-01] MEDS: MAGNESIUM OXIDE 400 MG TAB PO SCH ×2 (14:18→20:57)
[2018-05-01 15:50] VITALS: Ht 172.7 cm; Wt 98.4 kg
[2018-05-01 16:01] VITALS: BP 168/76; PULSE 55; TEMP 36.5; O2SAT 97
[2018-05-01 19:44] VITALS: BP 162/77; PULSE 63; TEMP 36.8; O2SAT 93
[2018-05-01] MEDS: METOPROLOL TARTRATE 25 MG TAB PO SCH (20:57)
[2018-05-01] MEDS: FLUTICASONE/SALMETEROL 100/50 (ADVAIR) 14 PUFF/1 INHALER INH SCH (20:58)
[2018-05-01] MEDS: INSULIN GLARGINE SOLOSTAR 100 UNITS/ML 3 ML PEN SC SCH (21:00)
[2018-05-01] MEDS ORDERED: INSULIN GLARGINE SOLOSTAR 100 UNITS/ML 3 ML PEN SC SCH (21:00)
[2018-05-01 23:09] VITALS: BP 149/77; PULSE 62; TEMP 37.1; O2SAT 92
[2018-05-02] VITALS (9 sets, daily range): BP systolic 138–183; BP diastolic 69–77; PULSE 55–69; TEMP 36.3–36.9; O2SAT 93–96
[2018-05-02] MEDS: INSULIN ASPART 100 UNITS/ML 3 ML PEN SC SCH ×4 (06:30→21:39)
[2018-05-02] MEDS: AMLODIPINE BESYLATE 5 MG TAB PO SCH (09:07)
[2018-05-02] MEDS: MAGNESIUM OXIDE 400 MG TAB PO SCH ×3 (09:07→21:36)
[2018-05-02] MEDS: FLUTICASONE/SALMETEROL 100/50 (ADVAIR) 14 PUFF/1 INHALER INH SCH ×2 (09:07→21:34)
[2018-05-02] MEDS: METOPROLOL TARTRATE 25 MG TAB PO SCH ×2 (09:07→21:36)
[2018-05-02] MEDS: LISINOPRIL 10 MG TAB PO SCH (09:07)
[2018-05-02] MEDS: CLOPIDOGREL BISULFATE 75 MG TAB PO SCH (09:07)
[2018-05-02] MEDS: PANTOprazole SOD 40 MG TAB PO SCH (09:08)
[2018-05-02] MEDS: FINASTERIDE 5 MG TAB PO SCH (09:08)
[2018-05-02] MEDS: ATORVASTATIN 40 MG TAB PO SCH (09:08)
[2018-05-02] MEDS: INSULIN GLARGINE SOLOSTAR 100 UNITS/ML 3 ML PEN SC SCH ×2 (09:12→21:40)
--- NOTE | 2018-05-02 10:16 | Neurology Consultation ---
Neurology Consultation Date of Consultation: May 02, 2018. Attending Physician: Jacinto Ortiz M.D. Primary Care Physician: Mahin Vigil M.D. Reason for Consultation: Stroke History of Present Illness Source: patient, hospital records The patient is an 83-year-old male who complains of persistent right-sided weakness that began 2 evenings ago. The weakness affects both the leg in arm although the leg to a much greater degree. He denies any associated facial droop or change in vision or speech. He has a past medical history of diabetes mellitus, hypertension, and hyperlipidemia. He has also been experiencing episodic vertigo for the past month which he indicates was successfully treated with Vee maneuvers although he believes he has some additional outpatient testing pending including what sounds like an electronystagmogram. A CT of the head completed in the emergency department was negative for hemorrhage or acute process. CT angiography of the head and neck were unremarkable. An electrocardiogram revealed a normal sinus rhythm, 62 beats per minute. A follow-up brain MRI has also been completed. I reviewed the images as well as the radiologist's interpretation of this test. There is an acute left periventricular, summers radiata ischemic infarct, atrophy, and moderate chronic small vessel ischemic disease. Past Medical/Surgical History Medical Problems: (1) Right sided weakness Status: Acute Family History Noncontributory in light of patient's advanced age Social History Smoking Status: Unknown if ever smoked Smokeless Tobacco Use: No Alcohol Use: none Allergies Coded Allergies: Oxycodone (Verified Adverse Reaction, Unknown, HALLUCINATIONS, 05/01/18) Current Inpatient Medications Current Inpatient Medications Medications (Trade) Dose Ordered Sig/Chris Route Start Time Stop Time Status Last Admin Dose Admin Ioversol (Optiray 320) 100 ml UD PRN IV 05/01/18 08:30 05/05/18 08:29 Hydralazine HCl (HydrALAZINE INJ) 10 mg Q4H PRN IV 05/01/18 10:00 05/31/18 09:59 Insulin Aspart (novoLOG ASPART) SLIDING SCALE PARAMETER ACHS SC 05/01/18 11:00 05/31/18 10:59 Clopidogrel Bisulfate (plAVix TAB) 75 mg QAM PO 05/02/18 09:00 06/01/18 08:59 05/02/18 09:07 75 MG Amlodipine Besylate (Norvasc Tab) 5 mg QAM PO 05/02/18 09:00 06/01/18 08:59 05/02/18 09:07 5 MG Finasteride (Proscar Tab) 5 mg QAM PO 05/02/18 09:00 06/01/18 08:59 05/02/18 09:08 5 MG Salmeterol Xinafoate/ Fluticasone (Advair Diskus 100/50 Inh) 1 puff BID INH 05/01/18 21:00 05/31/18 20:59 05/02/18 09:07 1 PUFF Lisinopril (Zestril Tab) 10 mg QAM PO 05/02/18 09:00 06/01/18 08:59 05/02/18 09:07 10 MG Magnesium Oxide (Mag-Ox Tab) 400 mg TID PO 05/01/18 14:00 05/31/18 13:59 05/02/18 09:07 400 MG Metoprolol Tartrate (Lopressor Tab) 25 mg BID PO 05/01/18 21:00 05/31/18 20:59 05/02/18 09:07 25 MG Pantoprazole Sodium (Protonix Tab) 40 mg QAM PO 05/02/18 09:00 06/01/18 08:59 05/02/18 09:08 40 MG Miscellaneous Information (Order Awaiting Action) 1 ea QS N/A 05/01/18 16:00 05/31/18 15:59 Atorvastatin Calcium (Lipitor Tab) 40 mg QAM PO 05/02/18 09:00 06/01/18 08:59 05/02/18 09:08 40 MG Glucose (Glucose 40% Gel) 15-30 GRAMS 15 GRAMS... UD PRN PO 05/01/18 12:00 05/31/18 11:59 Glucose (Glucose Chew Tab) 4-8 Tablets 4 Tabl... UD PRN PO 05/01/18 12:00 05/31/18 11:59 Dextrose (Dextrose 50% 50ML Syringe) 25-50ML 25ML FOR ... UD PRN IV 05/01/18 12:00 05/31/18 11:59 Glucagon (Glucagon Inj) 1 mg UD PRN IM 05/01/18 12:00 9/6/18 11:59 Carbohydrates (Carbohydrates For Hypoglycemia) 15-30 GRAMS 15 grams if BSG 54-69... UD PRN PO 05/01/18 12:00 05/31/18 11:59 Insulin Glargine (Lantus Solostar Pen) 8 units BID SC 05/01/18 21:00 05/31/18 20:59 05/02/18 09:12 8 UNITS Review of Systems Constitutional: No fever chills Eyes: No vision loss or diplopia ENT: As per history of present illness Cardiovascular: No chest pain or palpitations Respiratory: No cough or shortness of breath Musculoskeletal: No myalgia Neurological: As per history of present illness A full 10 point review of systems was obtained from this patient with pertinent positives and negatives described in history of present illness and otherwise listed above. All remaining systems were reviewed and are negative. Physical Exam Vital Signs (Past 24 Hrs): Date Time Temp Pulse Resp B/P (MAP) Pulse Ox O2 Delivery O2 Flow Rate FiO2 05/02/18 07:07 36.9 55 18 183/69 (107) 93 05/02/18 04:28 36.8 56 18 138/70 (92) 93 Room Air 05/02/18 00:00 Room Air 05/01/18 23:09 37.1 62 18 149/77 (101) 92 Room Air 05/01/18 20:00 Room Air 05/01/18 19:44 36.8 63 18 162/77 (105) 93 Room Air 05/01/18 16:01 36.5 55 18 168/76 (106) 97 Room Air 05/01/18 16:00 Room Air 05/01/18 11:14 36.4 54 16 175/75 94 Room Air 05/01/18 11:03 73 20 165/85 97 Room Air The patient is a well-developed, well-nourished elderly male. He is alert and fully oriented. Recent and remote memory intact. Attention and concentration normal. Patient exhibits a normal spontaneous speech pattern as well as an age- appropriate fund of knowledge. Visual laurent full to confrontation. Visual acuity normal. Pupils equal round react to light and accommodation. Eye movements normal. There is no nystagmus. Facial sensation intact bilaterally. There is no facial droop or asymmetry. Hearing intact bilaterally. Palate elevates to midline. Shoulder shrug strength intact. Tongue protrudes to midline. Sensation is slightly diminished for the right lower extremity to light touch and vibration. Otherwise, sensation is intact for the other limbs. Deep tendon reflexes are intact and symmetrical. Right plantar response upgoing, left plantar response equivocal. There is dysmetria with finger to nose and heel to fermin on the right. No dysmetria with [id number] or heel to fermin on the left. Ophthalmoscopic examination reveals normal-appearing optic discs and posterior segments. No papilledema or hemorrhages. Carotid pulses normal bilaterally, no bruits to auscultation. Gait and station cannot be tested. Evaluation of muscle strength reveals mild weakness for the right upper extremity, 4/5 and moderate weakness for the right lower extremity, 3/5. Muscle tone normal throughout. No atrophy. No abnormal movements observed. Laboratory Results Past 24 Hours: Test 05/02/18 07:27 Bedside Glucose 147 mg/dl (70-99) Impression Acute left hemispheric subcortical ischemic infarct resulting in a facial sparing right hemiparesis, leg greater than arm, without associated dysarthria or aphasia. Stroke risk factors for this patient include diabetes mellitus, hypertension, and hyperlipidemia. Plan Agree with Plavix, Lipitor, and antihypertensives as ordered. PT/OT Consider obtaining a transthoracic echocardiogram with bubble study to further exclude potential cardioembolic source. Case discussed with hospitalist physician, Dr. Ortiz.
--- NOTE | 2018-05-02 15:44 | Progress Note ---
Subjective Date of Service: May 02, 2018. Subjective pt remains with right sided weakness and has a confirmed CVA on MRI will have evaluted to rehab at [facility] Problem List Medical Problems: (1) Right sided weakness Status: Acute Review of Systems Constitutional: + weakness, + fatigue, No fever, No chills Respiratory: No cough, No shortness of breath, No dyspnea on exertion Abdomen: No pain, No nausea, No vomiting Musculoskeletal: No joint pain, No muscle pain, No swelling Neurologic: + weakness, + balance problems Psychiatric: No depression symptoms, No anxiety Endo: No fatigue, No excessive thirst Objective Vital Signs Date Time Temp Pulse Resp B/P (MAP) Pulse Ox O2 Delivery O2 Flow Rate FiO2 05/02/18 15:24 36.8 65 18 153/70 (97) 93 Room Air 05/02/18 12:17 36.6 62 18 167/77 (107) 95 Room Air 05/02/18 08:44 93 Room Air 05/02/18 07:07 36.9 55 18 183/69 (107) 93 05/02/18 04:28 36.8 56 18 138/70 (92) 93 Room Air 05/02/18 00:00 Room Air 05/01/18 23:09 37.1 62 18 149/77 (101) 92 Room Air 05/01/18 20:00 Room Air 05/01/18 19:44 36.8 63 18 162/77 (105) 93 Room Air 05/01/18 16:01 36.5 55 18 168/76 (106) 97 Room Air 05/01/18 16:00 Room Air Physical Exam General Appearance: WD/WN, + mild distress Eyes: normal inspection, sclerae normal Neck: supple, no JVD Respiratory/Chest: chest non-tender, lungs clear, normal breath sounds Cardiovascular: regular rate, rhythm, no murmur Abdomen: normal bowel sounds, non tender, soft Extremities: no pedal edema, no calf tenderness Neurologic/Psychiatric: alert, oriented x 3 Laboratory Results Last 24 Hours Test 05/01/18 16:29 05/01/18 20:28 05/02/18 07:27 05/02/18 11:54 Bedside Glucose 132 mg/dl 167 mg/dl 147 mg/dl 140 mg/dl Assessment and Plan (1) CVA (cerebral vascular accident) Assessment & Plan: 83-year-old male here with apparent clinical stroke symptoms with negative CT scan on presentation patient was out of the window for thrombolytic administration. CT angiogram suggests possible vertebral stenosis. Transition to Plavix therapy atorvastatin [place] confirmed on brain MRI, permissive hypertension will be achieved by reducing his antihypertensive medications he will receive PT OT evaluation in the ER clinical screening for speech seemed to be intact he had no problems with swallowing or speaking neurology consult agrees with plavix and high potency statin (2) Diabetes Assessment & Plan: Patient typically takes NPH 30 units at night and Glucophage. These will both be held. The patient be a basal bolus insulin with instituting Lantus at 8 units twice daily and sliding scale, glucose control is acceptable (3) BPH (benign prostatic hyperplasia) Assessment & Plan: Patient has not been bothered by clinical symptoms he will continue on Proscar and pharmacy substituted for his Rapaflo, continues without symptoms (4) COPD (chronic obstructive pulmonary disease) Assessment & Plan: Remains clinically stable will maintain Advair not instituting additional agents unless needed (5) CAD (coronary artery disease) Assessment & Plan: Coronary disease remains stable with no chest pain or exertional angina will maintain his antianginals of metoprolol at 25 twice daily however we will reduce his Zestril dose to 5 hold his Norvasc his statin will be transitioned from Zocor to plaque stabilizing atorvastatin (6) DVT prophylaxis Assessment & Plan: DVT prevention will be heparin therapy
[2018-05-02] MEDS ORDERED: SILODOSIN 8 MG CAP PO SCH (18:00)
[2018-05-02] MEDS: SILODOSIN 8 MG CAP PO SCH (18:10)
[2018-05-02] MEDS: HEPARIN SOD 5000 UNIT/0.5 ML CARP SQ SCH (21:00)
[2018-05-03] VITALS (8 sets, daily range): BP systolic 130–174; BP diastolic 70–76; PULSE 57–75; TEMP 36.3–36.8; O2SAT 94–97
--- NOTE | 2018-05-03 07:58 | Progress Note ---
Subjective Date of Service: May 03, 2018. Subjective this pt is doing well with physical therapy and is encouraged to go to subacute rehab Problem List Medical Problems: (1) Right sided weakness Status: Acute Review of Systems Constitutional: No fever, No chills, No weakness, No fatigue Cardiac: No chest pain, No edema Abdomen: No pain, No nausea, No vomiting Male : No dysuria, No incontinence Neurologic: + weakness, + balance problems, No memory loss Psychiatric: No depression symptoms, No anxiety Objective Vital Signs Date Time Temp Pulse Resp B/P (MAP) Pulse Ox O2 Delivery O2 Flow Rate FiO2 05/03/18 07:34 36.7 64 18 155/72 (99) 97 05/03/18 03:43 36.7 57 20 130/73 (92) 94 Room Air 05/03/18 00:00 Room Air 05/02/18 23:07 36.4 65 18 150/72 (98) 96 Room Air 05/02/18 20:00 93 Room Air 05/02/18 19:45 36.3 69 18 148/73 (98) 96 Room Air 05/02/18 16:00 93 Room Air 05/02/18 15:24 36.8 65 18 153/70 (97) 93 Room Air 05/02/18 12:17 36.6 62 18 167/77 (107) 95 Room Air 05/02/18 08:44 93 Room Air Physical Exam General Appearance: WD/WN, + mild distress Eyes: normal inspection, sclerae normal Respiratory/Chest: chest non-tender, lungs clear, normal breath sounds Cardiovascular: regular rate, rhythm, no murmur Abdomen: normal bowel sounds, non tender, soft Extremities: no pedal edema, no calf tenderness Neurologic/Psychiatric: alert, oriented x 3, + abnormal gait, + motor weakness Laboratory Results Last 24 Hours Test 05/02/18 11:54 05/02/18 16:58 05/02/18 20:28 05/03/18 05:47 Bedside Glucose 140 mg/dl 141 mg/dl 229 mg/dl Triglycerides Level 314 mg/dl Cholesterol Level 117 mg/dl HDL Cholesterol 38 mg/dl LDL Cholesterol, Calculated 16 mg/dl VLDL Cholesterol, Calculated 63 mg/dl Cholesterol/HDL Ratio 3.1 Test 05/03/18 07:30 Bedside Glucose 156 mg/dl Assessment and Plan (1) CVA (cerebral vascular accident) Assessment & Plan: 83-year-old male here with apparent clinical stroke symptoms with negative CT scan on presentation patient was out of the window for thrombolytic administration. CT angiogram suggests possible vertebral stenosis. Transition to Plavix therapy atorvastatin [place] confirmed on brain MRI, permissive hypertension will be achieved by reducing his antihypertensive medications he will receive PT OT evaluation in the ER clinical screening for speech seemed to be intact he had no problems with swallowing or speaking neurology consult agrees with plavix and high potency statin (2) Diabetes Assessment & Plan: Patient typically takes NPH 30 units at night and Glucophage. These will both be held. The patient be a basal bolus insulin with instituting Lantus at 8 units twice daily and sliding scale, glucose control is acceptable (3) BPH (benign prostatic hyperplasia) Assessment & Plan: Patient has not been bothered by clinical symptoms he will continue on Proscar and pharmacy substituted for his Rapaflo, continues without symptoms (4) COPD (chronic obstructive pulmonary disease) Assessment & Plan: Remains clinically stable will maintain Advair not instituting additional agents unless needed (5) CAD (coronary artery disease) Assessment & Plan: Coronary disease remains stable with no chest pain or exertional angina will maintain his antianginals of metoprolol at 25 twice daily however we will reduce his Zestril dose to 5 hold his Norvasc his statin will be transitioned from Zocor to plaque stabilizing atorvastatin (6) DVT prophylaxis Assessment & Plan: DVT prevention will be heparin therapy
[2018-05-03] MEDS: INSULIN ASPART 100 UNITS/ML 3 ML PEN SC SCH ×4 (08:30→21:00)
[2018-05-03] MEDS: MAGNESIUM OXIDE 400 MG TAB PO SCH ×3 (08:31→21:32)
[2018-05-03] MEDS: METOPROLOL TARTRATE 25 MG TAB PO SCH ×2 (08:31→21:34)
[2018-05-03] MEDS: FLUTICASONE/SALMETEROL 100/50 (ADVAIR) 14 PUFF/1 INHALER INH SCH ×2 (08:31→21:32)
[2018-05-03] MEDS: ATORVASTATIN 40 MG TAB PO SCH (08:31)
[2018-05-03] MEDS: CLOPIDOGREL BISULFATE 75 MG TAB PO SCH (08:31)
[2018-05-03] MEDS: AMLODIPINE BESYLATE 5 MG TAB PO SCH (08:32)
[2018-05-03] MEDS: PANTOprazole SOD 40 MG TAB PO SCH (08:32)
[2018-05-03] MEDS: FINASTERIDE 5 MG TAB PO SCH (08:32)
[2018-05-03] MEDS: LISINOPRIL 10 MG TAB PO SCH (08:33)
[2018-05-03] MEDS: INSULIN GLARGINE SOLOSTAR 100 UNITS/ML 3 ML PEN SC SCH ×2 (08:37→21:37)
[2018-05-03] MEDS: HEPARIN SOD 5000 UNIT/0.5 ML CARP SQ SCH ×2 (08:37→21:40)
[2018-05-03] MEDS: SILODOSIN 8 MG CAP PO SCH (17:31)
[2018-05-04] VITALS (7 sets, daily range): BP systolic 127–153; BP diastolic 68–77; PULSE 60–73; TEMP 36.3–36.8; O2SAT 93–96
[2018-05-04] MEDS: INSULIN ASPART 100 UNITS/ML 3 ML PEN SC SCH ×4 (08:24→21:57)
[2018-05-04] MEDS: FLUTICASONE/SALMETEROL 100/50 (ADVAIR) 14 PUFF/1 INHALER INH SCH ×2 (08:29→21:50)
[2018-05-04] MEDS: ATORVASTATIN 40 MG TAB PO SCH (08:29)
[2018-05-04] MEDS: LISINOPRIL 20 MG TAB PO SCH (08:30)
[2018-05-04] MEDS: METOPROLOL TARTRATE 25 MG TAB PO SCH ×2 (08:30→21:51)
[2018-05-04] MEDS: CLOPIDOGREL BISULFATE 75 MG TAB PO SCH (08:30)
[2018-05-04] MEDS: MAGNESIUM OXIDE 400 MG TAB PO SCH ×3 (08:30→21:52)
[2018-05-04] MEDS: PANTOprazole SOD 40 MG TAB PO SCH (08:30)
[2018-05-04] MEDS: FINASTERIDE 5 MG TAB PO SCH (08:32)
[2018-05-04] MEDS: AMLODIPINE BESYLATE 5 MG TAB PO SCH (08:32)
[2018-05-04] MEDS: INSULIN GLARGINE SOLOSTAR 100 UNITS/ML 3 ML PEN SC SCH ×2 (08:36→21:57)
[2018-05-04] MEDS: HEPARIN SOD 5000 UNIT/0.5 ML CARP SQ SCH ×2 (08:36→21:57)
--- NOTE | 2018-05-04 16:12 | Progress Note ---
Subjective Date of Service: May 04, 2018. Subjective this pt is doing well, still with some weakness and gait issues, along with arm weakness Problem List Medical Problems: (1) Right sided weakness Status: Acute Review of Systems Constitutional: No fever, No chills, No weakness, No fatigue Respiratory: No cough, No shortness of breath Cardiac: No chest pain, No edema, No claudication Abdomen: No pain, No nausea, No vomiting, No diarrhea Neurologic: + weakness, + balance problems, No memory loss Psychiatric: No depression symptoms, No anhedonism Objective Vital Signs Date Time Temp Pulse Resp B/P (MAP) Pulse Ox O2 Delivery O2 Flow Rate FiO2 05/04/18 15:37 36.4 73 18 142/69 (93) 95 Room Air 05/04/18 11:45 36.3 63 18 127/69 (88) 95 Room Air 05/04/18 08:00 96 Room Air 05/04/18 07:25 36.4 64 19 152/73 (99) 96 Room Air 05/04/18 05:20 36.6 60 18 143/77 (99) 96 Room Air 05/04/18 00:00 Room Air 05/03/18 22:56 36.8 68 19 147/73 (97) 94 Room Air 05/03/18 21:33 63 164/76 (105) 05/03/18 19:47 36.4 67 18 160/75 (103) 97 Room Air 05/03/18 16:46 Room Air Physical Exam General Appearance: WD/WN, + mild distress Eyes: normal inspection, sclerae normal Neck: supple, no JVD Respiratory/Chest: chest non-tender, lungs clear, normal breath sounds Cardiovascular: regular rate, rhythm, no murmur Abdomen: normal bowel sounds, non tender, soft Extremities: no pedal edema, no calf tenderness Neurologic/Psychiatric: alert, oriented x 3 Laboratory Results Last 24 Hours Test 05/03/18 16:47 05/03/18 20:29 05/04/18 07:35 05/04/18 11:59 Bedside Glucose 176 mg/dl 194 mg/dl 173 mg/dl 157 mg/dl Assessment and Plan (1) CVA (cerebral vascular accident) Assessment & Plan: 83-year-old male here with apparent clinical stroke symptoms with negative CT scan on presentation patient was out of the window for thrombolytic administration. CT angiogram suggests possible vertebral stenosis. Transition to Plavix therapy atorvastatin Stoke confirmed on brain MRI, permissive hypertension will be achieved by reducing his antihypertensive medications he will receive PT OT evaluation in the ER clinical screening for speech seemed to be intact he had no problems with swallowing or speaking neurology consult agrees with plavix and high potency statin will need rehab (2) Diabetes Assessment & Plan: Patient typically takes NPH 30 units at night and Glucophage. These will both be held. The patient be a basal bolus insulin with instituting Lantus at 8 units twice daily and sliding scale, glucose control is acceptable (3) BPH (benign prostatic hyperplasia) Assessment & Plan: no clinical complaints, continue on Proscar and pharmacy substituted for his Rapaflo, continues without symptoms (4) COPD (chronic obstructive pulmonary disease) Assessment & Plan: no symptoms, Advair not instituting additional agents unless needed (5) CAD (coronary artery disease) Assessment & Plan: Coronary disease continues to remain stable with no chest pain or exertional angina will maintain his antianginals of metoprolol at 25 twice daily however we will reduce his Zestril dose to 5 hold his Norvasc his statin will be transitioned from Zocor to plaque stabilizing atorvastatin (6) DVT prophylaxis Assessment & Plan: DVT prevention will be heparin therapy
[2018-05-04] MEDS: SILODOSIN 8 MG CAP PO SCH (17:14)
[2018-05-05 07:10] LABS: HEMATOCRIT 41.8 % (42-52); HEMOGLOBIN 14.5 g/dL (14.0-18.0); MEAN CELL VOLUME 95.2 fL (80-100); MEAN CORPUSCULAR HGB CONC 34.7 g/dl (32-36); MEAN PLATELET VOLUME 10.8 fL (7.4-10.4); PLATELET COUNT 124 K/uL (130-400); RED CELL DISTRIBUTION WIDTH CV 12.7 % (11.5-14.5); RED CELL DISTRIBUTION WIDTH SD 43.7 fL (36.4-46.3); WHITE BLOOD COUNT 6.77 K/uL (4.8-10.8)
[2018-05-05 07:20] VITALS: BP 137/69; PULSE 67; TEMP 36.4; O2SAT 93
[2018-05-05] MEDS ORDERED: PLV75 PO (07:49)
[2018-05-05] MEDS ORDERED: LPT40 PO (07:49)
[2018-05-05] MEDS ORDERED: PANT40TA2 PO (07:49)
--- NOTE | 2018-05-05 07:52 | Discharge Summary ---
Discharge Summary Date of Service May 05, 2018. Discharge Summary Admission Date: May 01, 2018 at 10:00 Discharge Date: May 05, 2018 Principal Diagnosis: stroke Immunizations: Have You Had Influenza Vaccine: Yes Influenza Vaccine Date: Jul 18, 2013 History of Tetanus Vaccine?: Yes History of Pneumococcal: Yes History of Hepatitis B Vaccine: Yes Medication Reconciliation New Medications: Atorvastatin (Lipitor) 40 Mg Tab 40 MG PO QAM, #90 TAB Clopidogrel Bisulfate (Clopidogrel) 75 Mg Tab 75 MG PO QAM, #90 TAB Pantoprazole (Pantoprazole Sodium) 40 Mg Tab 40 MG PO QAM, #90 TAB Continued Medications: Amlodipine (Norvasc) 5 Mg Tab 5 MG PO QAM, TAB Amoxicillin (Amoxil) 500 Mg Cap 2000 MG PO DAILY PRN for prior to dental appointment, #21 CAP Finasteride (Proscar) 5 Mg Tab 5 MG PO QAM, TAB Fluticasone Prop/Salmeterol (Advair Diskus 100/50 60 Dose) 1 Ea Aerp 1 PUFF INH BID, INHALER Insulin Human NPH (Humulin N) 100 Units/Ml Susp 30 UNITS SC HS Lisinopril (Zestril) 20 Mg Tab 20 MG PO QAM, TAB Magnesium Oxide (Mag-Ox) 400 Mg Tab 400 MG PO TID, 0 Refills Metformin Hcl (Glucophage) 1,000 Mg Tab 1000 MG PO BID, TAB Metoprolol Tartrate (Lopressor) (Lopressor) 25 Mg Tab 25 MG PO BID, TAB Multivitamin (Multivitamin) Tab 1 TAB PO DAILY, TAB Silodosin (Rapaflo) 8 Mg Cap 1 CAP PO QAM Discontinued Medications: Aspirin (Aspirin) 325 Mg Tab 325 MG PO QPM Omeprazole (Omeprazole) 20 Mg Tab 1 TAB PO QAM Simvastatin (Zocor) 20 Mg Tab 20 MG PO QPM, TAB Hospital Course (1) CVA (cerebral vascular accident) 83-year-old male here with apparent clinical stroke symptoms with negative CT scan on presentation patient was out of the window for thrombolytic administration. CT angiogram suggests possible vertebral stenosis. MRI of brain confirms CVA Transition to Plavix therapy atorvastatin [place] confirmed on brain MRI, PT OT evaluation and treatent with continued improvement speech seemed to be intact he had no problems with swallowing or speaking neurology consult agrees with plavix and high potency statin, will change to pantoprazole due to change to Plavix (2) Diabetes Patient typically takes NPH 30 units at night and Glucophage. return to this regime at discharge , glucose control is acceptable (3) BPH (benign prostatic hyperplasia) no clinical complaints, continue on Proscar and pharmacy substituted for his Rapaflo, continues without symptoms (4) COPD (chronic obstructive pulmonary disease) (5) CAD (coronary artery disease) Coronary disease continues to remain stable with no chest pain or exertional angina will maintain his antianginals of metoprolol at 25 twice daily plus Zestril and Norvasc his statin will be transitioned from Zocor to plaque stabilizing atorvastatin (6) DVT prophylaxis Total Time Spent: Greater than 30 minutes This includes examination of the patient, discharge planning, medication reconciliation, and communication with other providers. Discharge Instructions Please refer to the electronic Patient Visit Report (Discharge Instructions) for additional information.
[2018-05-05] MEDS: MAGNESIUM OXIDE 400 MG TAB PO SCH ×3 (07:58→21:07)
[2018-05-05] MEDS: METOPROLOL TARTRATE 25 MG TAB PO SCH ×2 (07:58→21:08)
[2018-05-05] MEDS: INSULIN ASPART 100 UNITS/ML 3 ML PEN SC SCH ×4 (07:58→21:09)
[2018-05-05] MEDS: FLUTICASONE/SALMETEROL 100/50 (ADVAIR) 14 PUFF/1 INHALER INH SCH ×2 (07:58→21:07)
[2018-05-05] MEDS: FINASTERIDE 5 MG TAB PO SCH (07:59)
[2018-05-05] MEDS: PANTOprazole SOD 40 MG TAB PO SCH (08:00)
[2018-05-05] MEDS: CLOPIDOGREL BISULFATE 75 MG TAB PO SCH (08:00)
[2018-05-05] MEDS: AMLODIPINE BESYLATE 5 MG TAB PO SCH (08:00)
[2018-05-05] MEDS: ATORVASTATIN 40 MG TAB PO SCH (08:00)
[2018-05-05] MEDS: LISINOPRIL 20 MG TAB PO SCH (08:01)
[2018-05-05] MEDS: HEPARIN SOD 5000 UNIT/0.5 ML CARP SQ SCH ×2 (08:05→21:10)
[2018-05-05] MEDS: INSULIN GLARGINE SOLOSTAR 100 UNITS/ML 3 ML PEN SC SCH ×2 (08:05→21:10)
--- NOTE | 2018-05-05 11:43 | Progress Note ---
Subjective Date of Service: May 05, 2018. Subjective pt has no complaints or problems and is awaiting rehab placement determination Problem List Medical Problems: (1) Right sided weakness Status: Acute Review of Systems Constitutional: + weakness, + fatigue, No fever, No chills Respiratory: No cough, No shortness of breath Cardiac: No chest pain, No edema Abdomen: No pain, No nausea, No vomiting Musculoskeletal: No joint pain, No muscle pain Neurologic: + weakness, + balance problems, No memory loss Objective Vital Signs Date Time Temp Pulse Resp B/P (MAP) Pulse Ox O2 Delivery O2 Flow Rate FiO2 05/05/18 07:20 36.4 67 16 137/69 (91) 93 05/04/18 23:33 36.8 66 19 153/72 (99) 94 Room Air 05/04/18 20:00 Room Air 05/04/18 19:53 36.6 69 18 151/68 (95) 93 Room Air 05/04/18 16:00 Room Air 05/04/18 15:37 36.4 73 18 142/69 (93) 95 Room Air 05/04/18 11:45 36.3 63 18 127/69 (88) 95 Room Air Physical Exam General Appearance: WD/WN, no apparent distress Eyes: normal inspection, PERRL, EOMI, sclerae normal Neck: supple, trachea midline Neurologic/Psychiatric: alert, oriented x 3 Skin: normal color, warm/dry Laboratory Results Last 24 Hours Test 05/04/18 11:59 05/04/18 16:31 05/04/18 20:29 05/05/18 06:51 Bedside Glucose 157 mg/dl 216 mg/dl 205 mg/dl White Blood Count 6.77 K/uL Red Blood Count 4.39 M/uL Hemoglobin 14.5 g/dL Hematocrit 41.8 % Mean Corpuscular Volume 95.2 fL Mean Corpuscular Hemoglobin 33.0 pg Mean Corpuscular Hemoglobin Concent 34.7 g/dl RDW Standard Deviation 43.7 fL RDW Coefficient of Variation 12.7 % Platelet Count 124 K/uL Mean Platelet Volume 10.8 fL Test 05/05/18 07:32 Bedside Glucose 170 mg/dl Assessment and Plan (1) CVA (cerebral vascular accident) Assessment & Plan: 83-year-old male here with apparent clinical stroke symptoms with negative CT scan on presentation patient was out of the window for thrombolytic administration. CT angiogram suggests possible vertebral stenosis. MRI of brain confirms CVA Transition to Plavix therapy atorvastatin [place] confirmed on brain MRI, PT OT evaluation and treatent with continued improvement speech seemed to be intact he had no problems with swallowing or speaking neurology consult agrees with plavix and high potency statin, will change to pantoprazole due to change to Plavix continue PT/OT while inpatient (2) Diabetes Assessment & Plan: Patient typically takes NPH 30 units at night and Glucophage. return to this regime at discharge , glucose control is acceptable (3) BPH (benign prostatic hyperplasia) Assessment & Plan: no clinical complaints, continue on Proscar and pharmacy substituted for his Rapaflo, continues without symptoms (4) COPD (chronic obstructive pulmonary disease) Assessment & Plan: remains stable at this time (5) CAD (coronary artery disease) Assessment & Plan: Coronary disease continues to remain stable with no chest pain or exertional angina will maintain his antianginals of metoprolol at 25 twice daily plus Zestril and Norvasc his statin will be transitioned from Zocor to plaque stabilizing atorvastatin (6) DVT prophylaxis
[2018-05-05 15:31] VITALS: BP 149/73; PULSE 69; TEMP 36.4; O2SAT 91
[2018-05-05] MEDS: SILODOSIN 8 MG CAP PO SCH (17:01)
[2018-05-05 19:54] VITALS: BP 114/70; PULSE 52; TEMP 36.6; O2SAT 96
[2018-05-05 21:00] VITALS: BP 172/68; PULSE 74; O2SAT 97
[2018-05-05] MEDS ORDERED: ACETAMINOPHEN 325 MG TAB PO PRN (21:00)
[2018-05-05 23:33] VITALS: BP 154/72; PULSE 69; TEMP 36.8; O2SAT 96
[2018-05-06 07:13] VITALS: BP 167/75; PULSE 61; TEMP 36.4; O2SAT 96
[2018-05-06] MEDS: FLUTICASONE/SALMETEROL 100/50 (ADVAIR) 14 PUFF/1 INHALER INH SCH (07:56)
[2018-05-06] MEDS: PANTOprazole SOD 40 MG TAB PO SCH (07:57)
[2018-05-06] MEDS: CLOPIDOGREL BISULFATE 75 MG TAB PO SCH (07:57)
[2018-05-06] MEDS: FINASTERIDE 5 MG TAB PO SCH (07:57)
[2018-05-06] MEDS: METOPROLOL TARTRATE 25 MG TAB PO SCH (07:57)
[2018-05-06] MEDS: AMLODIPINE BESYLATE 5 MG TAB PO SCH (07:57)
[2018-05-06] MEDS: MAGNESIUM OXIDE 400 MG TAB PO SCH ×2 (07:57→12:40)
[2018-05-06] MEDS: ATORVASTATIN 40 MG TAB PO SCH (07:58)
[2018-05-06] MEDS: LISINOPRIL 20 MG TAB PO SCH (07:58)
[2018-05-06] MEDS: HEPARIN SOD 5000 UNIT/0.5 ML CARP SQ SCH (08:06)
[2018-05-06] MEDS: INSULIN GLARGINE SOLOSTAR 100 UNITS/ML 3 ML PEN SC SCH (08:06)
[2018-05-06] MEDS: INSULIN ASPART 100 UNITS/ML 3 ML PEN SC SCH ×3 (08:06→16:30)
--- NOTE | 2018-05-06 08:43 | Progress Note ---
Subjective Date of Service: May 06, 2018. Problem List Medical Problems: (1) Right sided weakness Status: Acute Objective Vital Signs Date Time Temp Pulse Resp B/P (MAP) Pulse Ox O2 Delivery O2 Flow Rate FiO2 05/06/18 07:13 36.4 61 20 167/75 (105) 96 Room Air 05/05/18 23:33 36.8 69 19 154/72 (99) 96 Room Air 05/05/18 21:00 74 172/68 (102) 97 Room Air 05/05/18 20:00 Room Air 05/05/18 15:31 36.4 69 18 149/73 (98) 91 Room Air Laboratory Results Last 24 Hours Test 05/05/18 11:28 05/05/18 16:48 05/05/18 20:29 05/06/18 07:42 Bedside Glucose 192 mg/dl 225 mg/dl 191 mg/dl 186 mg/dl Assessment and Plan (1) CVA (cerebral vascular accident) (2) Diabetes (3) BPH (benign prostatic hyperplasia) (4) COPD (chronic obstructive pulmonary disease) (5) CAD (coronary artery disease) (6) DVT prophylaxis
--- NOTE | 2018-05-06 13:20 | Discharge Instructions ---
Discharge Instructions Date of Service May 06, 2018. Admission Reason for Admission: CVA Discharge Discharge Diagnosis / Problem: CVA Discharge Goals Goal(s): Diagnostic testing, Therapeutic intervention Activity Recommendations Activity Level: Assistance Required Therapies: Physical Therapy, Occupational Therapy . Additional Information Patient informed of condition: Yes Advance Directives: Yes DNR: No Level of Care: Skilled Communicable Disease: No Prognosis: Stable Patel Catheter: No Instructions / Follow-Up Instructions / Follow-Up (1) CVA (cerebral vascular accident) Assessment & Plan: 83-year-old male here with apparent clinical stroke symptoms with negative CT scan on presentation patient was out of the window for thrombolytic administration. CT angiogram suggests possible vertebral stenosis. MRI of brain confirms CVA Transition to Plavix therapy atorvastatin [place] confirmed on brain MRI, PT OT evaluation and treatent with continued improvement speech seemed to be intact he had no problems with swallowing or speaking neurology consult agrees with plavix and high potency statin, will change to pantoprazole due to change to Plavix (2) Diabetes Assessment & Plan: Patient typically takes NPH 30 units at night and Glucophage. return to this regime at discharge , glucose control is acceptable (3) BPH (benign prostatic hyperplasia) Assessment & Plan: no clinical complaints, continue on Proscar and pharmacy substituted for his Rapaflo, continues without symptoms (4) COPD (chronic obstructive pulmonary disease) Assessment & Plan: remains stable at this time (5) CAD (coronary artery disease) Assessment & Plan: Coronary disease continues to remain stable with no chest pain or exertional angina will maintain his antianginals of metoprolol at 25 twice daily plus Zestril and Norvasc his statin will be transitioned from Zocor to plaque stabilizing atorvastatin Current Hospital Diet Patient's current hospital diet: Diabetes Type 2 Diet Discharge Diet Recommended Diet: Regular Diet Pending Studies Studies pending at discharge: no Laboratory Results Lipid Panel Test 05/03/18 05:47 Range/Units Triglycerides Level 314 H 0-150 mg/dl Cholesterol Level 117 0-200 mg/dl HDL Cholesterol 38 mg/dl Cholesterol/HDL Ratio 3.1 LDL Cholesterol, Calculated 16 mg/dl Medical Emergencies . Who to Call and When: Medical Emergencies: If at any time you feel your situation is an emergency, please call 911 immediately. . Non-Emergent Contact Non-Emergency issues call your: Primary Care Provider Call Non-Emergent contact if: temperature is above 101, your pain is not controlled . . "Provider Documentation" section prepared by Jacinto Ortiz. . Core Measure Problem Core Measures: Stroke Stroke Core Measures Reason no t-PA for Stroke: Treatment not indicated Reason no antithrom by day 2: Treatment provided - N/A Reason no antithrom at D/C: Treatment provided - N/A Reason no statin at D/C: Treatment provided - N/A Reason no anticoag w/a fib: Treatment provided - N/A
--- NOTE | 2018-05-06 13:21 | Discharge Summary ---
Discharge Summary Date of Service May 06, 2018. Discharge Summary Admission Date: May 01, 2018 at 10:00 Discharge Date: May 06, 2018 Discharge Disposition: nursing home facility Principal Diagnosis: cva Immunizations: Have You Had Influenza Vaccine: Yes Influenza Vaccine Date: Jul 18, 2013 History of Tetanus Vaccine?: Yes History of Pneumococcal: Yes History of Hepatitis B Vaccine: Yes Medication Reconciliation New Medications: Atorvastatin (Lipitor) 40 Mg Tab 40 MG PO QAM, #90 TAB Clopidogrel Bisulfate (Clopidogrel) 75 Mg Tab 75 MG PO QAM, #90 TAB Pantoprazole (Pantoprazole Sodium) 40 Mg Tab 40 MG PO QAM, #90 TAB Continued Medications: Amlodipine (Norvasc) 5 Mg Tab 5 MG PO QAM, TAB Amoxicillin (Amoxil) 500 Mg Cap 2000 MG PO DAILY PRN for prior to dental appointment, #21 CAP Finasteride (Proscar) 5 Mg Tab 5 MG PO QAM, TAB Fluticasone Prop/Salmeterol (Advair Diskus 100/50 60 Dose) 1 Ea Aerp 1 PUFF INH BID, INHALER Insulin Human NPH (Humulin N) 100 Units/Ml Susp 30 UNITS SC HS Lisinopril (Zestril) 20 Mg Tab 20 MG PO QAM, TAB Magnesium Oxide (Mag-Ox) 400 Mg Tab 400 MG PO TID, 0 Refills Metformin Hcl (Glucophage) 1,000 Mg Tab 1000 MG PO BID, TAB Metoprolol Tartrate (Lopressor) (Lopressor) 25 Mg Tab 25 MG PO BID, TAB Multivitamin (Multivitamin) Tab 1 TAB PO DAILY, TAB Silodosin (Rapaflo) 8 Mg Cap 1 CAP PO QAM Discontinued Medications: Aspirin (Aspirin) 325 Mg Tab 325 MG PO QPM Omeprazole (Omeprazole) 20 Mg Tab 1 TAB PO QAM Simvastatin (Zocor) 20 Mg Tab 20 MG PO QPM, TAB Discharge Exam Review of Systems: Constitutional: No fever, No chills Psychiatric: No depression symptoms, No anxiety Physical Exam: General Appearance: WD/WN, + mild distress Eyes: normal inspection, sclerae normal Neurologic/Psychiatric: alert, oriented x 3 Hospital Course (1) CVA (cerebral vascular accident) (2) Diabetes (3) BPH (benign prostatic hyperplasia) (4) COPD (chronic obstructive pulmonary disease) (5) CAD (coronary artery disease) (6) DVT prophylaxis (1) CVA (cerebral vascular accident) Assessment & Plan: 83-year-old male here with apparent clinical stroke symptoms with negative CT scan on presentation patient was out of the window for thrombolytic administration. CT angiogram suggests possible vertebral stenosis. MRI of brain confirms CVA Transition to Plavix therapy atorvastatin [place] confirmed on brain MRI, PT OT evaluation and treatent with continued improvement speech seemed to be intact he had no problems with swallowing or speaking neurology consult agrees with plavix and high potency statin, will change to pantoprazole due to change to Plavix (2) Diabetes Assessment & Plan: Patient typically takes NPH 30 units at night and Glucophage. return to this regime at discharge , glucose control is acceptable (3) BPH (benign prostatic hyperplasia) Assessment & Plan: no clinical complaints, continue on Proscar and pharmacy substituted for his Rapaflo, continues without symptoms (4) COPD (chronic obstructive pulmonary disease) Assessment & Plan: remains stable at this time (5) CAD (coronary artery disease) Assessment & Plan: Coronary disease continues to remain stable with no chest pain or exertional angina will maintain his antianginals of metoprolol at 25 twice daily plus Zestril and Norvasc his statin will be transitioned from Zocor to plaque stabilizing atorvastatin Total Time Spent: Greater than 30 minutes This includes examination of the patient, discharge planning, medication reconciliation, and communication with other providers. Discharge Instructions Please refer to the electronic Patient Visit Report (Discharge Instructions) for additional information.
[2018-05-06 13:29] VITALS: BP 167/75; PULSE 61; TEMP 36.4; O2SAT 96
[2018-05-06 15:07] VITALS: BP 149/66; PULSE 64; TEMP 36.8; O2SAT 95
[2018-05-06] MEDS: SILODOSIN 8 MG CAP PO SCH (17:00)
[2018-05-06] MEDS ORDERED: METFORMIN HCL 500 MG TAB PO SCH (17:00)
== END 2018-05-06 18:11 | DRG 65 ==
LOC: C.EDA 08:38 → C.MED 10:00 → ENRESERV 10:28
PROVIDERS: ADMIT Internal Medicine; ATTEND Internal Medicine
DX: I63.9 Cerebral infarction, unspecified (principal); G81.91 Hemiplegia, unspecified affecting right dominant side; N40.0 Benign prostatic hyperplasia without lower urinary tract symptoms; J44.9 Chronic obstructive pulmonary disease, unspecified; I25.10 Atherosclerotic heart disease of native coronary artery without angina pectoris; Z86.73 Personal history of transient ischemic attack (TIA), and cerebral infarction without residual deficits; Z79.4 Long term (current) use of insulin; Z79.84 Long term (current) use of oral hypoglycemic drugs; Z88.5 Allergy status to narcotic agent; M16.10 Unilateral primary osteoarthritis, unspecified hip; Z87.891 Personal history of nicotine dependence; E11.9 Type 2 diabetes mellitus without complications; I10 Essential (primary) hypertension; E78.5 Hyperlipidemia, unspecified